=== PATIENT | female | born 1985 | race Caucasian/White ===

== ENCOUNTER → 2022-03-08 11:38 | Outpatient (CLI) | payer OTHER, SELFPAY ==
[2022-03-08 12:21] LABS: COVID19 -Nasal RAPID Negative (Negative)
== END ==
PROVIDERS: PCP Family Medicine; Visit Provider Specialist
DX: Z20.822 Contact with and (suspected) exposure to COVID-19 (principal); N39.3 Stress incontinence (female) (male)
CPT/HCPCS: 87635; 99215

== ENCOUNTER → 2022-03-11 14:47 | Outpatient (CLI) | payer OTHER, SELFPAY ==
[2022-03-11 15:13] LABS: COVID19 -Nasal RAPID Negative (Negative)
== END ==
PROVIDERS: PCP Family Medicine; Visit Provider Specialist
DX: Z20.822 Contact with and (suspected) exposure to COVID-19 (principal)
CPT/HCPCS: 87635; C9803

== ENCOUNTER 2022-03-14 09:49 | Day surgery (SDC) | payer OTHER, SELFPAY ==
[2022-03-14] VITALS (7 sets, daily range): BP systolic 105–122; BP diastolic 65–85; PULSE 78–90; RESP 14–17; TEMP 36.5–36.8; O2SAT 95–99; BMI 33.2
[2022-03-14] MEDS: LACTATED RINGERS 1,000 ML 42 ML IV (10:28)
[2022-03-14] MEDS: ACETAMINOPHEN IV 1,000 MG/100 ML VIAL 400 MG IV (10:29)
--- NOTE | 2022-03-14 12:00 | P.OP.PRE_ITS ---
Pre-operative Note COVID-19 Criteria for continued procedure: Increased loss of function, Deterioration of the patient's condition or overall health, Delay expected to result in less- positive ultimate med/surg outcome and Non-surgical alternatives not available or appropriate per current SOC Interval Note History & Physical reviewed/Exam performed by Physician: Yes Changes to H&P: No
[2022-03-14] MEDS: CEFAZOLIN 2 GM IN 0.9 % NACL 100 ML IV (12:55)
[2022-03-14] MEDS: EPINEPHrine 1 MG/ML 0.15 MG INJ (13:14)
[2022-03-14] MEDS: BUPIVACAINE 0.5% (PF) VIAL 30 ML INJ (13:16)
--- NOTE | 2022-03-14 13:18 | SUR.OPER ---
Lithotomy on padded OR bed, head on pillow, arms secured on padded arm boards at <90 degrees abduction. Legs secured in padded yellow fins stirrups.
--- NOTE | 2022-03-14 13:18 | SUR.OPER ---
Patients glasses placed in her belongings bag in pre-op area.
[2022-03-14] MEDS: BUPIVACAINE LIPOSOME 266 MG/20 ML VIAL INJ (13:30)
--- NOTE | 2022-03-14 13:41 | PM.OP.1 ---
Operative Date/Time/Diagnoses Date of procedure: 03/14/22 Time of procedure: 15:30 Pre-op diagnosis: Stress urinary incontinence Post-op diagnosis: same Procedure & Clinicians Procedure: 1. Placement suburethral mesh trans obturator sling. Same procedure as scheduled: Yes Indications: 1. Stress urinary incontinence. Surgeon: Efe Wylie Briquette Molder: Allie Valencia Click Yes if Unassisted: No Anesthesia Type: General and Local (0.5% Marcaine with epinephrine.) Operative Notes Findings: 1. Normal appearing urethra with loss of the UV angle. 2. Grade 2 cystocele. 3. Bladder urothelium normal throughout with clear efflux observed from both orifices. Closure Type: primary Specimen(s): none sent Prosthetic devices, grafts, tissues, transplants, or devices: Trans obturator sling mesh Applied: catheter ([address] Mcdowell catheter gravity drainage.) Estimated Blood Loss (mL): 100 Blood products transfused: none Procedure in detail: Patient was positioned supine was administered general anesthesia. He was then repositioned in semi lithotomy and the lower abdomen, genitalia, vaginal vault, and groin were prepped and draped in sterile fashion. A 16 Maltese Mcdowell catheter was inserted the bladder contents were drained. Next, a weighted speculum was position in the vaginal vault the patient was positioned in Trendelenburg. Local anesthetic was used to infiltrate the skin and subcutaneous tissue over each obturator fossa at its superior and medial aspect bilaterally. Same anesthetic was used to infiltrate the vaginal epithelium in subcutaneous tissues in the midline urethra and laterally. Next small stab incisions were made over the superior medial aspect of each obturator fossa over the perineum proximally horizontal to the clitoris. A midline incision was made in the anterior vaginal wall over the midline of the mid urethra. The tip of the Metzenbaum was then carefully insinuated and careful blunt exposure was directed anterior laterally bilaterally. The index finger was then insinuated in the vaginal vein extended along the posterior aspect of the pubic symphysis. Next the transfer needles were advanced through the perineal incisions bilaterally and guided with the tip of the opposite index finger to bring the tip of the transfer needle out in the area of the perineum and vaginal introitus. The Mcdowell catheter balloon was deflated and the Mcdowell catheter was removed. The 22 Maltese panendoscope was then prepared and was advanced in the lower urinary tract through the urethra. Careful examination revealed no evidence of bladder, bladder neck, or urethral transgression. The cystoscope was then removed and the Mcdowell catheter was replaced the bladder contents drained. The balloon was inflated to 10 cc. Now the suburethral mesh was secured to the ends of each of the transfer needles and then were carefully withdrawn taking care to position the mesh flat. The midpoint of the mesh was then positioned over the mid urethra. A Metzenbaum scissor was then position between the mid urethra and the sling gentle tensioning was then performed. The transfer needles were then from mesh bilaterally the cellophane sleeves over the mesh were then withdrawn. The tails of the mesh were then tucked into the subcutaneous fat of the labia majora bilaterally deep to the skin. The Metzenbaum scissor was then removed from his position between the mid urethra and the mesh sling. Final adjustments were then made and the anterior vaginal wall incision was closed with a running intermittently locking 2-0 Vicryl with excellent hemostasis. The perineal incisions were reapproximated using any single subcuticular 4-0 Monocryl utilizing a buried method. The skin surface the perineum was then cleaned and dried. Small op-site dressings were then applied over the perineal incision sites. The Mcdowell catheter was left to gravity drainage. It was secured to the inner thigh with a StatLock after being positioned in supine. Patient was then awakened, transferred to [facility], and transported recovery in stable condition. Complications: none Post-operative Condition: stable Disposition: PACU Plan for aftercare: Discharge home.
[2022-03-14] MEDS: OXYCODONE IR 5 MG TABLET PO (14:15)
== END 2022-03-14 15:10 | disposition home or self-care (01) ==
PROVIDERS: PCP Family Medicine; Referring Provider Specialist; Visit Provider Specialist
PROC: (CPT 57288; principal; 2022-03-14 11:15)
DX: N39.3 Stress incontinence (female) (male) (principal); N81.10 Cystocele, unspecified
CPT/HCPCS: 57288; 81025; 82962; C9290; J0131; J0171; J0690; J2250; J3010

== ENCOUNTER → 2022-04-20 13:13 | Outpatient (CLI) | payer SELFPAY | PROVIDERS: PCP Family Medicine; Visit Provider Specialist | DX: Z09 Encounter for follow-up examination after completed treatment for conditions other than malignant neoplasm (principal); N39.3 Stress incontinence (female) (male) | CPT/HCPCS: 51798; 81002; 87086 ==